=== PATIENT | female | born 1975 | race Caucasian/White ===

== ENCOUNTER 2024-02-09 09:20 | Outpatient (CLI) | payer OTHER, SELFPAY | END 2024-02-09 09:21 | disposition home or self-care (01) | LOC: NFLDREF 02-10 11:04 | PROVIDERS: PCP Family Medicine; Referring Provider Family Medicine; Visit Provider Nurse Practitioner Family | DX: M54.9 Dorsalgia, unspecified (principal) | CPT/HCPCS: 87086 ==